=== PATIENT | male | born 1955 | race Caucasian/White ===

== ENCOUNTER → 2020-12-30 | Outpatient (REF) | payer MEDICARE, MEDICAID ==
[~2020-12-30] MED LIST: ASPE16CR TOP; HYDR-3715 PO; IBUP200C25 PO; OMEP-218 PO; VITA-243 PO; VITMTA PO
[2020-12-30 13:17] LABS: BASO % 0.4 % (0.0-1.0); EOS # 0.1 10^3/uL (0.0-0.5); EOS % 0.8 % (0.0-3.0); HEMATOCRIT 45.2 % (42.0-52.0); HEMOGLOBIN 15.7 g/dl (13.5-17.5); LYMPH # 0.5 10^3/uL (1.5-5.0); LYMPH % 6.3 % (24.0-44.0); MEAN CORPUSCULAR HGB CONC 34.7 g/dl (32.0-36.5); MEAN CORPUSCULAR VOLUME 92.2 fl (80.0-96.0); MONO # 0.5 10^3/uL (0.0-0.8); MONO % 6.5 % (2.0-8.0); NEUTROPHILS # 6.7 10^3/uL (1.5-8.5); NEUTROPHILS % 85.9 % (36.0-66.0); PLATELET COUNT, AUTOMATED 301 10^3/uL (150-450); WHITE BLOOD COUNT 7.8 10^3/uL (4.0-10.0)
[2020-12-30 13:27] LABS: INR 0.96
[2020-12-30 13:28] LABS: PARTIAL THROMBOPLASTIN TIME 35.4 SECONDS (24.2-38.5)
[2020-12-30 13:35] LABS: BLOOD UREA NITROGEN 12 MG/DL (7-18); CALCIUM LEVEL 9.8 MG/DL (8.8-10.2); CARBON DIOXIDE LEVEL 28 MEQ/L (21-32); CHLORIDE LEVEL 108 MEQ/L (98-107); CREATININE FOR GFR 0.86 MG/DL (0.70-1.30); GLOMERULAR FILTRATION RATE > 60.0 (>49); GLUCOSE, FASTING 83 MG/DL (70-100); POTASSIUM SERUM 4.8 MEQ/L (3.5-5.1); SODIUM LEVEL 139 MEQ/L (136-145)
== END ==
LOC: M LAB REF 12:41
PROVIDERS: ATTEND Internal Medicine Pulmonary Disease
DX: R91.1 Solitary pulmonary nodule (principal); Z79.01 Long term (current) use of anticoagulants

== ENCOUNTER 2021-01-07 15:44 | Emergency (ER) | payer MEDICARE, MEDICAID, OTHER ==
[~2021-01-07] VITALS: Ht 170.2 cm; Wt 77.6 kg
[2021-01-07 15:45] VITALS: BP 169/86
[2021-01-07] MEDS ORDERED: OMEP-218 PO (16:04)
[2021-01-07] MEDS ORDERED: ISOVUE-370 76% 100ML VIAL As Ordered ONE (16:49)
--- NOTE | 2021-01-07 18:10 | REPVR ---
PROCEDURE INFORMATION: Exam: CT Chest With Contrast; Diagnostic Exam date and time: 01/07/2021 4:10 PM Age: 65 years old Clinical indication: Mass, lump, or swelling in the chest TECHNIQUE: Imaging protocol: Diagnostic computed tomography of the chest with contrast. Radiation optimization: All CT scans at this facility use at least one of these dose optimization techniques: automated exposure control; mA and/or kV adjustment per patient size (includes targeted exams where dose is matched to clinical indication); or iterative reconstruction. Contrast material: ISOVUE 370; Contrast volume: 75 ml; Contrast route: INTRAVENOUS (IV); COMPARISON: No relevant prior studies available. FINDINGS: Tubes, catheters and devices: MediPort catheter tip in superior vena cava. Lungs: There is a mass posteriorly in the left upper lobe along the major fissure measuring 1.5 cm AP x 1.6 cm cc x 2.1 cm in width. There is no focal lung consolidation. There is bronchial wall thickening and dilatation. Pleural spaces: No pleural effusion or pneumothorax. Heart: No cardiomegaly or pericardial effusion. Pulmonary arteries: No obvious pulmonary emboli. Aorta: Unremarkable. No aortic aneurysm. Lymph nodes: No significant mediastinal or hilar lymphadenopathy. Spleen: Splenic granulomas. No significant findings in the upper abdomen. Bones/joints: Unremarkable. No acute fracture. Soft tissues: Unremarkable. IMPRESSION: 1. There is a pleural base mass along the fissure at the base of the left upper lobe measuring 1.5 x 1.6 x 2.1 cm. . For both low risk and high risk patients, consider CT Chest at 3 months, PET/CT, or biopsy. (Reference: Charanjit) REFERENCES: Charanjit Baugh et al. Guidelines for Management of Incidental Pulmonary Nodules Detected on CT Images: From the Fleischner Society 2017. Radiology. 2017;284(1):228-243. Electronically signed by: Lauryn Juarez On 01/07/2021 18:09:59 PM
[2021-02-04] MEDS ORDERED: IBUP200C25 PO (12:53)
[2021-02-04] MEDS ORDERED: ASPE16CR TOP (12:54)
== END 2021-01-07 17:37 | disposition home or self-care (01) ==
LOC: M ED 15:44
DX: R91.8 Other nonspecific abnormal finding of lung field (principal); Z85.048 Personal history of other malignant neoplasm of rectum, rectosigmoid junction, and anus; Z79.899 Other long term (current) drug therapy
CPT/HCPCS: 36415; 71260; 80047; 99284; Q9967

== ENCOUNTER 2021-01-10 08:19 | Day surgery (SDC) | payer OTHER ==
[~2021-01-10] VITALS: Ht 170.2 cm; Wt 78.0 kg
[~2021-01-10 08:19] MED LIST changes: -ASPE16CR TOP; -HYDR-3715 PO; -IBUP200C25 PO; +LIDOCAINE 2% 100MG/5ML SDV (FOR ANES.) As Ordered ONE; +MIDAZOLAM INJ 2MG/2ML VIAL (J2250 PER 1MG) As Ordered ONE; +OMEP-218; -OMEP-218 PO; +ROCURONIUM BROMIDE 50 MG/5 ML VIAL As Ordered ONE; -VITA-243 PO; -VITMTA PO; +fentaNYL 100 MCG/2 ML INJECTION (J3010) As Ordered ONE; +propofoL 200 MG/20 ML VIAL As Ordered ONE
[2021-01-10] MEDS ORDERED: VITMTA PO (08:51)
[2021-01-10] MEDS ORDERED: VITA-243 PO (08:51)
[2021-01-10] MEDS ORDERED: THROMBIN SOLN 5,000 UNITS VIAL As Ordered ONE (08:56)
[2021-01-10] MEDS ORDERED: EPINEPHrine 1MG/10ML SYRINGE 1.5IN As Ordered ONE (08:57)
[2021-01-10] MEDS ORDERED: LIDOCAINE 1% SDV 30ML VIAL As Ordered ONE (08:57)
[2021-01-10] MEDS ORDERED: CETACAINE SPRAY 5GM As Ordered ONE (08:57)
[2021-01-10] MEDS ORDERED: LIDOCAINE 4% INJ 5ML AMP NEB ONE (09:00)
[2021-01-10] MEDS ORDERED: ALBUTEROL SULFATE 2.5 MG/0.5 ML INH NEB SOLN INH ONE (09:00)
[2021-01-10] MEDS ORDERED: fentaNYL 100 MCG/2 ML INJECTION (J3010) As Ordered ONE (09:46)
[2021-01-10] MEDS ORDERED: ONDANSETRON 4MG/2ML VIAL As Ordered ONE (10:03)
[2021-01-10] MEDS ORDERED: dexameTHASONE 4 MG/ML 1ML VIAL (J1100 PER 1MG) As Ordered ONE ×2 (10:03→10:04)
[2021-01-10] MEDS ORDERED: SUGAMMADEX SODIUM 500 MG/5 ML VIAL (BRIDION) As Ordered ONE (10:04)
[2021-01-10] MEDS ORDERED: KETOROLAC 60MG 2ML VIAL As Ordered ONE (10:04)
--- NOTE | 2021-01-10 10:54 | REP ---
INDICATION: LEFT UPPER LOBE ABNORMALITY. COMPARISON: CT 01/07/2021. TECHNIQUE: Five C-arm views chest. FINDINGS: Bronchoscope overlies the left lung. IMPRESSION: 316 seconds of fluoroscopy time utilized. <Electronically signed by Juan Velasquez > 01/10/21 [id number]
--- NOTE | 2021-01-10 10:59 | REP ---
INDICATION: POST OP IN PACU/BRONCHOSCOPY. COMPARISON: None TECHNIQUE: Portable FINDINGS: The technique utilized in obtaining the radiograph has magnified the cardiac silhouette and attenuated the interstitial markings. The cardiomediastinal silhouette is within normal limits. There is a patchy opacity in the left upper lobe. The MediPort device is in place the tip of which is in the superior vena cava. The pleural angles are sharp. The osseous structures are within normal limits. IMPRESSION: Left upper lobe patchy opacity. Other findings as described above. <Electronically signed by Wolfgang Lara > 01/10/21 1203
[2021-01-10] MEDS ORDERED: oxyCODONE 5MG TAB PO PRN (11:00)
[2021-01-10] MEDS ORDERED: HYDROMORPHONE HCL 0.5 MG/ 0.5 ML SYRINGE (J1170 PER 1) IV PRN (11:00)
[2021-01-10] MEDS ORDERED: ONDANSETRON 4MG/2ML VIAL IV PRN (11:00)
[2021-01-10] MEDS ORDERED: fentaNYL 100 MCG/2 ML INJECTION (J3010) IV PRN (11:00)
[2021-01-10] MEDS ORDERED: LR 1,000 ML IV SCH (11:00)
--- NOTE | 2021-01-10 11:06 | ROOR ---
Patient Name: Kody Musa Procedure Date: 01/10/2021 9:02 AM Date of : 1955 Admit Type: Outpatient Age: 65 Note Status: Finalized Attending MD: Robyn Bocanegra MD Procedure: Bronchoscopy Indications: Left upper lobe nodule Providers: Robyn Bocanegra MD (Doctor) Referring MD: Aileen Oswald (Referring MD) Requesting Physician: Medicines: Lidocaine 4% via nebulizer with Albuterol 2.5 mg, Epinephrine 1 mg/10 mL topical 2 mL, General Anesthesia, Cetacaine topical Complications: No immediate complications. Estimated blood loss: Minimal Procedure: Pre-Anesthesia Assessment: - Prior to the procedure, a History and Physical was performed, and patient medications and allergies were reviewed. The patient's tolerance of previous anesthesia was also reviewed. The risks and benefits of the procedure and the sedation options and risks were discussed with the patient. All questions were answered, and informed consent was obtained. Prior Anticoagulants: The patient has taken no previous anticoagulant or antiplatelet agents. ASA Grade Assessment: II - A patient with mild systemic disease. After reviewing the risks and benefits, the patient was deemed in satisfactory condition to undergo the procedure. - Patient identification and proposed procedure were verified prior to the procedure by the physician, the nurse, the anesthesiologist, the electric power line repairer and the testing and regulating technician. The procedure was verified in the procedure room. The Bronchoscope was introduced through the mouth, via the endotracheal tube (the patient was intubated for the procedure) and advanced to the tracheobronchial tree of both lungs. The procedure was accomplished without difficulty. The patient tolerated the procedure well. Findings: The endotracheal tube is in good position. The visualized portion of the trachea is of normal caliber. The kika is sharp. The tracheobronchial tree was examined to at least the first subsegmental level. Bronchial mucosa and anatomy are normal; there are no endobronchial lesions, and no secretions. Robotic Electromagnetic navigation bronchoscopy was performed. The CT scan was used for planning purposes. A virtual bronchoscopic image was generated using the planning software. The target in the apical-posterior segment of the left upper lobe was marked. A nodule 2 cm in size was found and a pathway was created. The robotic navigation phase was then begun to locate the target lesion(s). Positioning centrally (in relation to the lesion) was confirmed using the Olympus radial probe US catheter. Fluoroscopy guided transbronchial brushings of a nodule were obtained in the apical-posterior segment of the left upper lobe with a cytology brush and sent for routine cytology. Transbronchial brushing technique was selected because the sampling site was not accessible using standard endoscopic (bronchoscopic) techniques. Transbronchial needle aspirations of a nodule were performed in the apical-posterior segment of the left upper lobe using a fine (20 gauge) needle and sent for routine cytology. The procedure was guided by fluoroscopy. Transbronchial needle aspiration technique was selected because the sampling site was not visible endoscopically. Transbronchial biopsies of a nodule were performed in the apical-posterior segment of the left upper lobe using forceps and sent for histopathology examination. The procedure was guided by fluoroscopy. Transbronchial biopsy technique was selected because the sampling site was not visible endoscopically. There was some difficulty passing the forceps through the robotic bronchoscope due to the acute angulation needed to be on target with the nodule. Impression: - Left upper lobe nodule - The airway examination was normal. - Electromagnetic navigation bronchoscopy was performed. - Transbronchial brushings were obtained. - A transbronchial needle aspiration was performed. - Transbronchial lung biopsies were performed. Recommendation: - Await test results. Procedure Code(s): --- Professional --- 76016, Bronchoscopy, rigid or flexible, including fluoroscopic guidance, when performed; with transbronchial needle aspiration biopsy(s), trachea, main stem and/or lobar bronchus(i) 91682, Bronchoscopy, rigid or flexible, including fluoroscopic guidance, when performed; with transbronchial lung biopsy(s), single lobe 64132, Bronchoscopy, rigid or flexible, including fluoroscopic guidance, when performed; with brushing or protected brushings 75491, Bronchoscopy, rigid or flexible, including fluoroscopic guidance, when performed; with computer-assisted, image-guided navigation (List separately in addition to code for primary procedure[s]) 07424, Bronchoscopy, rigid or flexible, including fluoroscopic guidance, when performed; with transendoscopic endobronchial ultrasound (EBUS) during bronchoscopic diagnostic or therapeutic intervention(s) for peripheral lesion(s) (List separately in addition to code for primary procedure[s]) CPT copyright 2019 [employer]. All rights reserved. The codes documented in this report are preliminary and upon hims coder review may be revised to meet current compliance requirements. Robyn Bocanegra MD 01/10/2021 11:06:36 AM Number of Addenda: 0 Note Initiated On: 01/10/2021 9:02 AM
[2021-01-10 11:40] VITALS: BP 173/89
== END 2021-01-10 11:40 | disposition home or self-care (01) ==
LOC: M PAT 08:19
PROVIDERS: ATTEND Internal Medicine Pulmonary Disease
DX: R91.1 Solitary pulmonary nodule (principal); Z85.048 Personal history of other malignant neoplasm of rectum, rectosigmoid junction, and anus; K21.9 Gastro-esophageal reflux disease without esophagitis; Z87.891 Personal history of nicotine dependence; Z92.21 Personal history of antineoplastic chemotherapy; Z92.3 Personal history of irradiation; N40.0 Benign prostatic hyperplasia without lower urinary tract symptoms; M19.90 Unspecified osteoarthritis, unspecified site; E78.5 Hyperlipidemia, unspecified; Z79.899 Other long term (current) drug therapy
CPT/HCPCS: 31623; 31627; 31628; 31629; 71045; 76000; 88104; 88173; 88305; J1100; J1885; J2250; J2405; J3010; S2900

== ENCOUNTER → 2021-01-17 | Outpatient (CLI) | payer OTHER ==
[~2021-01-17] MED LIST changes: -LIDOCAINE 2% 100MG/5ML SDV (FOR ANES.) As Ordered ONE; -MIDAZOLAM INJ 2MG/2ML VIAL (J2250 PER 1MG) As Ordered ONE; -ROCURONIUM BROMIDE 50 MG/5 ML VIAL As Ordered ONE; +VITA-243 PO; +VITMTA PO; -fentaNYL 100 MCG/2 ML INJECTION (J3010) As Ordered ONE; -propofoL 200 MG/20 ML VIAL As Ordered ONE
--- NOTE | 2021-01-17 13:50 | PFTRPT ---
Height: 67.00 Inches Weight: 167.00 Lbs BSA: 1.87 Diagnosis: R91.1 DATE: 01/17/2021 ORDERING PHYSICIAN: Devon Zayas MD Pre and post bronchodilator studies have excellent technical quality. Forced vital capacity is normal. FEV1 is in proportion. Obstructive index is therefore normal. Expiratory limit of the flow-volume loop is normal. No bronchodilator response is identified. Total lung capacity is normal. Residual volume is in proportion. Diffusing capacity is normal. Hemoglobin is acceptable at 15.9. Airway resistance and conductance are normal. IMPRESSION: Normal study. MTDD
== END ==
LOC: M CARPUL 13:05
PROVIDERS: ATTEND Thoracic Surgery (Cardiothoracic Vascular Surgery)
DX: R91.1 Solitary pulmonary nodule (principal)

== ENCOUNTER → 2021-02-04 | Outpatient (CLI) | payer OTHER ==
[~2021-02-04] MED LIST changes: +ASPE16CR TOP; +IBUP200C25 PO; -OMEP-218; +OMEP-218 PO
[2021-02-04 12:59] LABS: HEMATOCRIT 44.7 % (42.0-52.0); HEMOGLOBIN 15.5 g/dl (13.5-17.5); MEAN CORPUSCULAR HEMOGLOBIN 32.3 pg (27.0-33.0); MEAN CORPUSCULAR HGB CONC 34.7 g/dl (32.0-36.5); MEAN CORPUSCULAR VOLUME 93.1 fl (80.0-96.0); PLATELET COUNT, AUTOMATED 314 10^3/uL (150-450); WHITE BLOOD COUNT 9.5 10^3/uL (4.0-10.0)
[2021-02-04 13:15] LABS: BLOOD UREA NITROGEN 15 MG/DL (7-18); CALCIUM LEVEL 9.2 MG/DL (8.8-10.2); CARBON DIOXIDE LEVEL 27 MEQ/L (21-32); CHLORIDE LEVEL 108 MEQ/L (98-107); CREATININE FOR GFR 0.92 MG/DL (0.70-1.30); GLOMERULAR FILTRATION RATE > 60.0 (>49); GLUCOSE, FASTING 94 MG/DL (70-100); POTASSIUM SERUM 4.5 MEQ/L (3.5-5.1); SODIUM LEVEL 139 MEQ/L (136-145)
[2021-02-04 13:29] LABS: INR 0.97; PROTHROMBIN TIME 13.1 SECONDS (12.5-14.3)
[2021-02-04 13:30] LABS: PARTIAL THROMBOPLASTIN TIME 35.6 SECONDS (24.2-38.5)
[2021-02-04 13:53] LABS: ABG BASE EXCESS -1.4 (-2.0-2.0); ABG HCO3 22.2 MEQ/L (22.0-26.0); ABG PARTIAL PRESSURE CO2 34.4 mmHg (35.0-45.0); ABG PARTIAL PRESSURE O2 87.6 mmHg (75.0-100.0); ABG STANDARD HCO3 23.3 MEQ/L (22.0-26.0); ABG TOTAL CO2 23.2 MEQ/L (23.0-31.0); ABG pH (ARTERIAL) 7.427 UNITS (7.350-7.450)
[2021-02-04 14:19] LABS: APPEARANCE, URINE CLEAR (CLEAR); BACTERIA, URINE AUTO NEGATIVE (NEGATIVE); BILIRUBIN, URINE AUTO NEGATIVE (NEGATIVE); BLOOD, URINE BLOOD 1+ (NEGATIVE); COLOR, URINE YELLOW (YELLOW); GLUCOSE, URINE (UA) AUTO NEGATIVE (NEGATIVE); KETONE, URINE AUTO 1+ mg/dL (NEGATIVE); LEUKOCYTE ESTERASE, URINE AUTO NEGATIVE (NEGATIVE); MUCUS, URINE SMALL (NEGATIVE); NITRITE, URINE AUTO NEGATIVE (NEGATIVE); PROTEIN, URINE AUTO NEGATIVE (NEGATIVE); RBC, URINE AUTO 2 /HPF (0-3); SQUAMOUS EPITHELIAL CELL UR AU 1 /HPF (0-6); UROBILINOGEN, URINE AUTO 0.2 mg/dL (0.0-2.0); WBC, URINE AUTO 4 /HPF (0-3)
--- NOTE | 2021-02-04 14:40 | REP ---
INDICATION: PREOP ROOM 23 LEFT LOBE ABNORMALITY COMPARISON: 01/10/2021 TECHNIQUE: PA and lateral. FINDINGS: The mediastinum and cardiac silhouette are normal. Godhag-I-Lgem with tip in the IVC. 2.3 cm mass in the left upper lung zone. Remainder of lung banuelos are clear. No effusion. No pneumothorax. The skeletal structures are intact and normal. IMPRESSION: 2.3 cm left upper lobe lung mass. <Electronically signed by Pacheco Bean > 02/04/21 [id number]
--- NOTE | 2021-02-05 01:05 | ECGEPIP ---
[facility] Test Date: 2021-02-04 Pat Name: ARIC ULLOA Department: Room: - Gender: Male [employer] Collector: LOPEZ : 1955 Requested By: Devon Saucedo Order Number: [id number] Reading MD: Jose M Vilchis Measurements Intervals [place] Rate: 57 P: 52 ME: 118 QRS: 29 QRSD: 92 T: 27 QT: 410 QTc: 399 Interpretive Statements Sinus bradycardia No prior tracing in the system Electronically Signed on 02-05-2021 1:05:35 EDT by Jose M Vilchis
== END ==
LOC: M ADMPAT 12:17
PROVIDERS: ATTEND Thoracic Surgery (Cardiothoracic Vascular Surgery)
DX: Z01.818 Encounter for other preprocedural examination (principal)

== ENCOUNTER 2021-02-10 06:45 | Inpatient (IN) | payer OTHER ==
[~2021-02-10] VITALS: Ht 170.2 cm; Wt 74.4 kg
[2021-02-10] VITALS (17 sets, daily range): BP systolic 107–185; BP diastolic 55–108
[~2021-02-10 06:45] MED LIST changes: +LR 1,000 ML IV ONE; +ceFAZolin SOD 2 GM in IV 1 EA IV ONE
[2021-02-10] MEDS ORDERED: CETACAINE SPRAY 5GM As Ordered ONE (07:53)
[2021-02-10] MEDS ORDERED: BUPIVACAINE HCL 0.25% 10ML VIAL As Ordered ONE (07:53)
[2021-02-10] MEDS ORDERED: BUPIVACAINE LIPOSOME/PF 1.3% 20ML VIAL (13.3MG/ML)(EXPAREL)(C9290 PER1MG) As Ordered ONE (07:53)
[2021-02-10] MEDS ORDERED: MUPIROCIN 2% OINT 22 GM TUBE TOP ONE (08:05)
[2021-02-10] MEDS ORDERED: MIDAZOLAM INJ 2MG/2ML VIAL (J2250 PER 1MG) As Ordered ONE ×2 (08:15→08:32)
[2021-02-10] MEDS ORDERED: fentaNYL 100 MCG/2 ML INJECTION (J3010) As Ordered ONE (08:15)
[2021-02-10] MEDS ORDERED: MIDAZOLAM INJ 2MG/2ML VIAL (J2250 PER 1MG) IV ONE (08:15)
[2021-02-10] MEDS ORDERED: fentaNYL 100 MCG/2 ML INJECTION (J3010) IV ONE (08:20)
[2021-02-10] MEDS ORDERED: ROCURONIUM BROMIDE 50 MG/5 ML VIAL As Ordered ONE ×2 (08:31→10:10)
[2021-02-10] MEDS ORDERED: LIDOCAINE 2% 100MG/5ML SDV (FOR ANES.) As Ordered ONE (08:31)
[2021-02-10] MEDS ORDERED: propofoL 200 MG/20 ML VIAL As Ordered ONE (08:31)
[2021-02-10] MEDS ORDERED: fentaNYL 250 MCG/5 ML INJECTION (J3010) As Ordered ONE (08:32)
[2021-02-10] MEDS ORDERED: BUPIVACAINE HCL 0.25% 30ML VIAL As Ordered ONE (08:38)
[2021-02-10] MEDS ORDERED: BACITRACIN OINTMENT 30GM TUBE As Ordered ONE (08:39)
[2021-02-10] MEDS ORDERED: LIDOCAINE 2% JELLY 5ML TUBE As Ordered ONE (08:57)
[2021-02-10] MEDS ORDERED: MUPIROCIN 2% OINT 22 GM TUBE As Ordered ONE (09:17)
[2021-02-10] MEDS ORDERED: ePHEDrine SULFATE 25 MG/5 ML(5MG/ML) SYRINGE As Ordered ONE (09:21)
[2021-02-10] MEDS ORDERED: dexameTHASONE 4 MG/ML 1ML VIAL (J1100 PER 1MG) As Ordered ONE (10:05)
[2021-02-10] MEDS ORDERED: hydrALAZINE 20MG/ML 1ML VIAL (J0360 PER 20MG) As Ordered ONE (10:20)
[2021-02-10] MEDS ORDERED: HYDROmorphone HCL 2 MG/ML 1ML VIAL (J1170) As Ordered ONE (10:48)
[2021-02-10] MEDS ORDERED: SUGAMMADEX SODIUM 500 MG/5 ML VIAL (BRIDION) As Ordered ONE (11:17)
[2021-02-10] MEDS ORDERED: ONDANSETRON 4MG/2ML VIAL As Ordered ONE (11:17)
[2021-02-10] MEDS ORDERED: ACETAMINOPHEN 1000MG 100ML IV BTL (OFIRMEV) (J0131 PER 10MG) As Ordered ONE (12:23)
[2021-02-10] MEDS ORDERED: KETOROLAC 60MG 2ML VIAL As Ordered ONE (12:53)
[2021-02-10] MEDS ORDERED: LEVALBUTEROL 1.25 MG/0.5 ML CONCENTRATE NEB NEB PRN (12:55)
[2021-02-10] MEDS ORDERED: ONDANSETRON 4MG/2ML VIAL IV PRN ×3 (12:55→13:05)
[2021-02-10] MEDS ORDERED: ACETAMINOPHEN TAB 650MG DOSE (2X325MG) PO PRN (12:55)
[2021-02-10] MEDS ORDERED: BISACODYL 10 MG SUPP PR PRN (12:55)
[2021-02-10] MEDS ORDERED: PERCOCET 5MG/325MG TAB PO PRN ×2 (12:55)
[2021-02-10] MEDS ORDERED: diphenhydrAMINE 50MG/ML VIAL (J1200) IV PRN (13:00)
[2021-02-10] MEDS ORDERED: WALLBOXKEY XX PRN (13:00)
[2021-02-10] MEDS ORDERED: METOCLOPRAMIDE INJ 10MG/2ML VIAL (J2765 PER 1) IV PRN (13:00)
[2021-02-10] MEDS ORDERED: EPIDURAL/PCA KEYS XX PRN (13:00)
[2021-02-10] MEDS ORDERED: NALOXONE INJ 0.4MG/1ML VIAL (J2310 PER 1MG) IV PRN (13:00)
[2021-02-10] MEDS ORDERED: LR 1,000 ML IV SCH (13:05)
[2021-02-10] MEDS: FENTANYL/BUPIVACAINE/NACL BAG 250 ML EPIDURAL SCH (13:16)
[2021-02-10 13:26] LABS: ABG BASE EXCESS -3.3 (-2.0-2.0); ABG HCO3 22.2 MEQ/L (22.0-26.0); ABG O2 SATURATION 95.6 % (95.0-99.0); ABG PARTIAL PRESSURE CO2 41.3 mmHg (35.0-45.0); ABG STANDARD HCO3 21.7 MEQ/L (22.0-26.0); ABG TOTAL CO2 23.5 MEQ/L (23.0-31.0); ABG pH (ARTERIAL) 7.348 UNITS (7.350-7.450)
[2021-02-10] MEDS: fentaNYL 100 MCG/2 ML INJECTION (J3010) IV PRN ×4 (13:32→13:49)
[2021-02-10] MEDS: oxyCODONE 5MG TAB PO PRN ×2 (13:33→14:09)
[2021-02-10] MEDS: KCL 20MEQ IN D5/NS 1000ML 1,000 ML IV SCH (13:34)
[2021-02-10 13:43] LABS: BASO % 0.2 % (0.0-1.0); HEMATOCRIT 44.7 % (42.0-52.0); HEMOGLOBIN 15.5 g/dl (13.5-17.5); LYMPH # 0.7 10^3/uL (1.5-5.0); LYMPH % 3.9 % (24.0-44.0); MEAN CORPUSCULAR HEMOGLOBIN 31.8 pg (27.0-33.0); MEAN CORPUSCULAR HGB CONC 34.7 g/dl (32.0-36.5); MEAN CORPUSCULAR VOLUME 91.8 fl (80.0-96.0); MONO # 0.2 10^3/uL (0.0-0.8); MONO % 1.3 % (2.0-8.0); NEUTROPHILS # 15.9 10^3/uL (1.5-8.5); NEUTROPHILS % 94.1 % (36.0-66.0); PLATELET COUNT, AUTOMATED 299 10^3/uL (150-450); RED BLOOD COUNT 4.87 10^6/uL (4.30-6.10); WHITE BLOOD COUNT 16.9 10^3/uL (4.0-10.0)
[2021-02-10 14:02] LABS: BLOOD UREA NITROGEN 12 MG/DL (7-18); CALCIUM LEVEL 8.9 MG/DL (8.8-10.2); CARBON DIOXIDE LEVEL 24 MEQ/L (21-32); CHLORIDE LEVEL 108 MEQ/L (98-107); CREATININE FOR GFR 0.92 MG/DL (0.70-1.30); GLOMERULAR FILTRATION RATE > 60.0 (>49); GLUCOSE, FASTING 131 MG/DL (70-100); POTASSIUM SERUM 3.8 MEQ/L (3.5-5.1); SODIUM LEVEL 140 MEQ/L (136-145)
--- NOTE | 2021-02-10 14:49 | RO ---
OPERATIVE NOTE DATE OF OPERATION: 02/10/2021 PRE-PROCEDURE DIAGNOSIS: Left pleural lung lesion. POST-PROCEDURE DIAGNOSIS: Metastatic rectal carcinoma left upper lobe. PROCEDURE: 1. Thoracoscopy followed by an open thoracotomy and wedge resection. 2. Lysis of adhesions. 3. Five-level rib block. SURGEON: Devon Zayas MD FINDINGS: Bronchoscopy revealed a normal branching tracheobronchial tree. The thoracoscopy revealed mostly adhesions which prompted an open procedure. The tumor was densely adhered to the left lower lobe and it took a considerable amount of time to dissect it free so that a staple could surround it. Eventually, a portion of the left lower lobe was taken along with the specimen and then the actual wedge resection of the specimen was undertaken. 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 DESCRIPTION OF PROCEDURE: Under satisfactory general anesthesia and single-lumen tube endotracheal intubation, the bronchoscope was passed into the tracheobronchial tree. Each segment and subsegment was thoroughly inspected and there were no endobronchial lesions. The patient was then turned into the right lateral decubitus position and a thoracoscopy incision was made in the mid clavicular line. The scope was passed and multiple adhesions were found. It was very clear that I was going to have to do a thoracotomy in order to remove this mass. Posterior and lateral thoracotomy incision was then undertaken with division of the latissimus dorsi and a slip of the serratus anterior. The chest was entered in the intercostal space and therein followed a lengthy, tedious, and long dissection in order to free the fissure up from the multiple adhesions. The tumor was sitting right in the fissure and was densely adhered to the left lower lobe. I could eventually slowly and carefully lyse the adhesions, such that I could get underneath the tumor from [id number], so as to get a stapler underneath the tumor. In order to that, I first took a wedge of the left lower lobe with the tumor attached to it. I then freed up the tumor to be mobilized and an echelon stapler was then placed beneath the tumor, and wedge resection was accomplished in two passes. This was sent to the lab with the above results. After achieving adequate hemostasis, two chest tubes were placed. A 5-level rib block was placed consisting of Marcaine and Exparel. The staple lock was covered with Tisseel glue and the ribs were reapproximated with the use of #1 Prolene [id number]-gcvju sutures serving as pericostal stitches. The lungs were reinflated. These were then tied and the extra-thoracic muscles were closed with running 0-Vicryl suture, the subcutaneous tissue by use of a 3-0 Vicryl sutures, and the skin by use of 3-0 Monocryl subcuticular suture. The patient tolerated the procedure well and left the operating room in satisfactory condition and went to the recovery room.
[2021-02-10] MEDS: LEVALBUTEROL 1.25 MG/0.5 ML CONCENTRATE NEB NEB SCH ×2 (14:58→20:34)
[2021-02-10] MEDS: KETOROLAC 30 MG/ML 1ML VIAL IV SCH (18:01)
[2021-02-10] MEDS: HEPARIN SOD (PORCINE) 5000UNITS/ML 1ML VIAL/SYRINGE SC SCH (20:22)
[2021-02-10] MEDS: DOCUSATE SODIUM 100MG CAPSULE PO SCH (20:22)
[2021-02-11] VITALS (12 sets, daily range): BP systolic 102–143; BP diastolic 53–75
[2021-02-11] MEDS: KETOROLAC 30 MG/ML 1ML VIAL IV SCH ×4 (00:26→18:01)
[2021-02-11] MEDS: KCL 20MEQ IN D5/NS 1000ML 1,000 ML IV SCH (01:48)
[2021-02-11] MEDS: LEVALBUTEROL 1.25 MG/0.5 ML CONCENTRATE NEB NEB SCH ×4 (01:51→19:40)
--- NOTE | 2021-02-11 03:53 | REP ---
INDICATION: s/p LULwedge, thoracotomy COMPARISON: 02/04/2021 TECHNIQUE: Portable AP view of the chest FINDINGS: Two left-sided chest tubes are identified along with small amount of postsurgical changes including small amounts of subcutaneous emphysema. No focal consolidation, obvious effusion, significant atelectasis or pneumothorax. Mediastinum and cardiac silhouette are normal. Nxakzv-Z-Qiah identified with tip in the SVC. Skeletal structures are intact. IMPRESSION: Postsurgical changes involving the left hemithorax. <Electronically signed by Pacheco Bean > 02/11/21 [id number]
[2021-02-11 06:16] LABS: ABG BASE EXCESS -2.1 (-2.0-2.0); ABG HCO3 21.5 MEQ/L (22.0-26.0); ABG PARTIAL PRESSURE CO2 33.4 mmHg (35.0-45.0); ABG PARTIAL PRESSURE O2 80.3 mmHg (75.0-100.0); ABG STANDARD HCO3 22.7 MEQ/L (22.0-26.0); ABG TOTAL CO2 22.5 MEQ/L (23.0-31.0); ABG pH (ARTERIAL) 7.426 UNITS (7.350-7.450)
[2021-02-11 06:30] LABS: BASO % 0.1 % (0.0-1.0); LYMPH # 0.4 10^3/uL (1.5-5.0); LYMPH % 3.6 % (24.0-44.0); MEAN CORPUSCULAR HEMOGLOBIN 32.2 pg (27.0-33.0); MEAN CORPUSCULAR HGB CONC 34.2 g/dl (32.0-36.5); MEAN CORPUSCULAR VOLUME 94.1 fl (80.0-96.0); MONO # 0.9 10^3/uL (0.0-0.8); NEUTROPHILS # 9.1 10^3/uL (1.5-8.5); PLATELET COUNT, AUTOMATED 260 10^3/uL (150-450); RED BLOOD COUNT 4.04 10^6/uL (4.30-6.10); WHITE BLOOD COUNT 10.4 10^3/uL (4.0-10.0)
[2021-02-11 06:54] LABS: BLOOD UREA NITROGEN 11 MG/DL (7-18); CALCIUM LEVEL 8.2 MG/DL (8.8-10.2); CARBON DIOXIDE LEVEL 23 MEQ/L (21-32); CHLORIDE LEVEL 111 MEQ/L (98-107); CREATININE FOR GFR 0.78 MG/DL (0.70-1.30); GLOMERULAR FILTRATION RATE > 60.0 (>49); GLUCOSE, FASTING 120 MG/DL (70-100); POTASSIUM SERUM 4.2 MEQ/L (3.5-5.1); SODIUM LEVEL 141 MEQ/L (136-145)
--- NOTE | 2021-02-11 08:51 | REP ---
INDICATION: s/p LULwedge, thoracotomy COMPARISON: 02/10/2021 TECHNIQUE: PA and lateral. FINDINGS: Mediastinum and cardiac silhouette are relatively stable. Right hemithorax appears relatively stable/clear. Left hemithorax demonstrates postsurgical changes with 2 chest tubes extending to the left apex. Qptmfo-A-Eopa identified with tip in the SVC. Trace left basilar atelectasis cannot be excluded. No obvious effusion or pneumothorax. IMPRESSION: Cannot exclude trace left basilar atelectasis. <Electronically signed by Pacheco Bean > 02/11/21 0825
[2021-02-11] MEDS: MOM 30ML SUSPENSION UDC PO SCH (09:25)
[2021-02-11] MEDS: DOCUSATE SODIUM 100MG CAPSULE PO SCH ×2 (09:26→20:50)
[2021-02-11] MEDS: HEPARIN SOD (PORCINE) 5000UNITS/ML 1ML VIAL/SYRINGE SC SCH ×2 (09:26→20:50)
[2021-02-11] MEDS: PANTOPRAZOLE 40MG TAB (PROTONIX) PO SCH (09:26)
--- NOTE | 2021-02-11 12:26 | IPN ---
PROGRESS NOTE DATE: 02/11/2021 This is now the first postoperative day for Mr. Musa status post a wedge resection for what has turned out to be metastatic rectal carcinoma. I informed the patient of the findings of yesterday to reinforce what I told him in the recovery room. His pain is being well controlled with the epidural. His vital signs show a maximum temperature of 98.3 with a heart rate that ranges between 60-101 in a sinus rhythm, respiratory rate of 16-18 without the use of accessory muscles who is 93%-96% saturated now on room air, and blood pressure is ranging between 143/57 to 102/59. His intake and output for the past 24 hours has been recorded as 2173 in and 716 out, for a positivity of 1400 mL. He has put 81 mL out of the chest tube, and there is no air leak. Weight today is 74.9 kg compared to 75.48 kg yesterday. PHYSICAL EXAMINATION: He has some coarse rhonchi, which clears with coughing, and underneath normal vesicular sounds. Cardiac exam is without murmurs, clicks, gallops, or rubs. I cannot feel his point of maximal impulse (PMI). S1 and S2 are normal. Abdomen is soft and nontender. Bowel sounds are positive. He is slightly distended. He is having flatus. There is no hepatomegaly. No costovertebral angle (CVA) tenderness. Extremities show no pretibial edema, no calf tenderness, no differential swelling of the upper extremities. Skin is warm, dry, and perfused without cyanosis or mottling, including that of the nailbeds and knees. Neck is supple. There is no jugular venous distention. No subcutaneous emphysema. Trachea is midline. Mouth shows the mucous membranes to be pink and moist. Lips and commissures without lesions. No thrush. Eyes show his pupils to be equal and reactive. Extraocular motion intact. Sclerae anicteric. Neurologic shows II-XII intact. Normal gross motor, gross sensation intact. Gait is not tested. Psychiatric shows him to be awake, alert, and oriented times three with appropriate mood and affect and conversational. His white count today is 10.4 with a hemoglobin and hematocrit of 13.0 and 38.0, respectively. Platelet count is 260, and differential shows 87% neutrophils, 30% lymphocytes, and 9% monocytes. There are no immature forms or toxic granulations. His electrolytes are normal with a BUN and creatinine of 11 and 0.78, glucose of 120, and a calcium 8.2. His chest x-ray today shows his lung fully expanded to the chest wall. Costophrenic angles are sharp. There is no subcutaneous emphysema, and the trachea is in the midline. There are no infiltrates either on the PA or lateral views. Chest tubes are in good place. IMPRESSION: 1. Metastatic rectal carcinoma to the lung, status post wedge resection. 2. Gastroesophageal reflux disease. PLAN AND DISCUSSION: I will take his chest tubes off suction today. I will transfer him to the progressive care unit (PCU). There is an outside possibility that I could remove the chest tubes tomorrow. I will not diurese him today, however. I have already called his oncologist, Dr. Aileen Oswald, in [place] and have informed her of the findings. She is to see him in about 2 weeks for followup medical therapy.
[2021-02-11] MEDS: FENTANYL/BUPIVACAINE/NACL BAG 250 ML EPIDURAL SCH (13:43)
[2021-02-12] MEDS: KETOROLAC 30 MG/ML 1ML VIAL IV SCH ×5 (01:00→18:29)
[2021-02-12] MEDS: LEVALBUTEROL 1.25 MG/0.5 ML CONCENTRATE NEB NEB SCH ×4 (02:16→19:58)
[2021-02-12 05:34] LABS: BASO % 0.3 % (0.0-1.0); EOS # 0.1 10^3/uL (0.0-0.5); HEMATOCRIT 38.7 % (42.0-52.0); HEMOGLOBIN 13.1 g/dl (13.5-17.5); LYMPH # 0.6 10^3/uL (1.5-5.0); LYMPH % 6.6 % (24.0-44.0); MEAN CORPUSCULAR HEMOGLOBIN 32.5 pg (27.0-33.0); MEAN CORPUSCULAR HGB CONC 33.9 g/dl (32.0-36.5); MONO # 0.8 10^3/uL (0.0-0.8); MONO % 8.3 % (2.0-8.0); NEUTROPHILS # 7.6 10^3/uL (1.5-8.5); NEUTROPHILS % 83.5 % (36.0-66.0); PLATELET COUNT, AUTOMATED 249 10^3/uL (150-450); RED BLOOD COUNT 4.03 10^6/uL (4.30-6.10); WHITE BLOOD COUNT 9.1 10^3/uL (4.0-10.0)
[2021-02-12 06:01] LABS: BLOOD UREA NITROGEN 13 MG/DL (7-18); CALCIUM LEVEL 8.2 MG/DL (8.8-10.2); CARBON DIOXIDE LEVEL 25 MEQ/L (21-32); CHLORIDE LEVEL 112 MEQ/L (98-107); CREATININE FOR GFR 0.86 MG/DL (0.70-1.30); GLOMERULAR FILTRATION RATE > 60.0 (>49); GLUCOSE, FASTING 94 MG/DL (70-100); POTASSIUM SERUM 4.2 MEQ/L (3.5-5.1); SODIUM LEVEL 143 MEQ/L (136-145)
[2021-02-12 07:35] VITALS: BP 138/65
[2021-02-12] MEDS: MOM 30ML SUSPENSION UDC PO SCH (07:42)
[2021-02-12] MEDS: PANTOPRAZOLE 40MG TAB (PROTONIX) PO SCH (07:43)
[2021-02-12] MEDS: HEPARIN SOD (PORCINE) 5000UNITS/ML 1ML VIAL/SYRINGE SC SCH ×2 (07:43→20:46)
[2021-02-12] MEDS: DOCUSATE SODIUM 100MG CAPSULE PO SCH ×2 (07:43→20:45)
--- NOTE | 2021-02-12 09:08 | REP ---
INDICATION: s/p LULwedge, thoracotomy. COMPARISON: Comparison chest x-ray February 11, 2021 TECHNIQUE: ... FINDINGS: Two left-sided chest tubes are noted in place. There is no definite pneumothorax visible. Minimal pleural thickening is seen laterally on the left and there is platelike atelectasis behind the heart in the left lower lobe. Platelike atelectasis is suspected in the right base as well. There is an epidural catheter visible in the upper thoracic spine and EKG electrodes are seen. A left-sided central venous line terminates in the expected location of superior vena cava as before. No new infiltrate is seen. No free pleural effusion seen. IMPRESSION: Two left-sided chest tubes remain in place. No evidence of pneumothorax or hydrothorax. Mild bibasilar platelike atelectasis.. <Electronically signed by August Timmons > 02/12/21 [id number]
[2021-02-12] MEDS ORDERED: FUROSEMIDE 40MG/4ML VIAL (J1940) IV ONE (11:00)
[2021-02-12 12:00] VITALS: BP 136/72
--- NOTE | 2021-02-12 12:13 | IPN ---
PROGRESS NOTE DATE: 02/12/2021 This is now the second postoperative day for Mr. Musa. His pain is being well controlled with the epidural. There is no air leak, and his lung is fully expanded to the chest wall. His vital signs show a maximum temperature of 98.2 with a heart rate that ranges between 101-68 in a sinus rhythm with a respiratory rate of 16-18 without the use of accessory muscles, who is 94%-95% saturated on room air and whose blood pressure is ranging between 138/65 to 111/67. His intake and output for the past 24 hours has been recorded as 1804 in and 1929 out, for a negativity of 125 mL. He has put 150 mL out the chest tube, and there is no air leak. He weighs 75.2 kg today compared to 74.9 kg yesterday. PHYSICAL EXAMINATION: His lung show equal breath sounds on either side with normal vesicular sounds. There are no wheezes, rhonchi, or rales. Percussion note is full to the diaphragm. Cardiac exam is without murmurs, clicks, gallops, or rubs. I cannot feel his point of maximal impulse (PMI). S1 and S2 are normal. Abdomen is soft and nontender. Bowel sounds are positive. There is no hepatomegaly. No costovertebral angle (CVA) tenderness. He has not yet had a bowel movement but is passing flatus. Extremities show no pretibial edema, no calf tenderness, no differential swelling of the upper extremities. Skin is warm, dry, and perfused without cyanosis or mottling, including that of the nailbeds and knees. Neck is supple. There is no jugular venous distention. No subcutaneous emphysema. Trachea is midline. Mouth shows the mucous membranes to be pink and moist. Lips and commissures without lesions. No thrush. Eyes show his pupils to be equal and reactive. Extraocular motion intact. Sclerae anicteric. Neurologic shows II-XII intact. Normal gross motor, gross sensation intact. Gait is not tested. Psychiatric shows him to be awake, alert, and oriented times three with appropriate mood and affect and conversational. His white count today is 9.1 with a hemoglobin and hematocrit of 13.1 and 38.7, unchanged from yesterday, with a platelet count of 249 and stable. Differential shows 83% neutrophils, 6% lymphocytes, and 8% monocytes. There are no immature forms or toxic granulations. His electrolytes are essentially normal with a BUN and creatinine of 13 and 0.86, a glucose of 94, and a calcium of 8.2. His chest x-ray shows his lung fully expanded to the chest wall. There is no subcutaneous emphysema. Costophrenic angles are sharp. Chest tubes are in good place. IMPRESSION: 1. Metastatic rectal carcinoma to the lung status post wedge resection. 2. Gastroesophageal reflux disease. PLAN AND DISCUSSION: I will discontinue his chest tubes today. We will wean the epidural and discontinue the Jaquez. During the wean we will give him oral pain medications. I will also diurese him today.
[2021-02-12] MEDS: FENTANYL/BUPIVACAINE/NACL BAG 250 ML EPIDURAL SCH (12:41)
[2021-02-12] MEDS: NORCO, ANEXSIA 5/325MG TABLET (HYDROcodone/ACETAMINOPHEN) PO PRN (15:35)
[2021-02-12 16:00] VITALS: BP 161/77
[2021-02-12 20:00] VITALS: BP 150/70
[2021-02-13] VITALS: BP 154/73
[2021-02-13] MEDS: KETOROLAC 30 MG/ML 1ML VIAL IV SCH ×2 (00:27→06:00)
[2021-02-13] MEDS: LEVALBUTEROL 1.25 MG/0.5 ML CONCENTRATE NEB NEB SCH ×2 (01:05→07:02)
[2021-02-13 03:58] LABS: BASO % 0.3 % (0.0-1.0); EOS # 0.1 10^3/uL (0.0-0.5); EOS % 0.9 % (0.0-3.0); HEMATOCRIT 42.1 % (42.0-52.0); HEMOGLOBIN 14.6 g/dl (13.5-17.5); LYMPH # 0.6 10^3/uL (1.5-5.0); LYMPH % 5.5 % (24.0-44.0); MEAN CORPUSCULAR HEMOGLOBIN 32.6 pg (27.0-33.0); MEAN CORPUSCULAR HGB CONC 34.7 g/dl (32.0-36.5); MONO # 0.8 10^3/uL (0.0-0.8); MONO % 7.4 % (2.0-8.0); NEUTROPHILS # 8.6 10^3/uL (1.5-8.5); NEUTROPHILS % 85.4 % (36.0-66.0); PLATELET COUNT, AUTOMATED 276 10^3/uL (150-450); RED BLOOD COUNT 4.48 10^6/uL (4.30-6.10); WHITE BLOOD COUNT 10.1 10^3/uL (4.0-10.0)
[2021-02-13 04:00] VITALS: BP 158/76
[2021-02-13] MEDS: NORCO, ANEXSIA 5/325MG TABLET (HYDROcodone/ACETAMINOPHEN) PO PRN (04:01)
[2021-02-13 04:24] LABS: BLOOD UREA NITROGEN 15 MG/DL (7-18); CARBON DIOXIDE LEVEL 26 MEQ/L (21-32); CHLORIDE LEVEL 107 MEQ/L (98-107); CREATININE FOR GFR 0.92 MG/DL (0.70-1.30); GLOMERULAR FILTRATION RATE > 60.0 (>49); GLUCOSE, FASTING 109 MG/DL (70-100); POTASSIUM SERUM 3.9 MEQ/L (3.5-5.1); SODIUM LEVEL 139 MEQ/L (136-145)
[2021-02-13 08:00] VITALS: BP 145/83
[2021-02-13] MEDS: HEPARIN SOD (PORCINE) 5000UNITS/ML 1ML VIAL/SYRINGE SC SCH (08:18)
[2021-02-13] MEDS: PANTOPRAZOLE 40MG TAB (PROTONIX) PO SCH (08:18)
[2021-02-13] MEDS: MOM 30ML SUSPENSION UDC PO SCH (08:19)
[2021-02-13] MEDS: DOCUSATE SODIUM 100MG CAPSULE PO SCH (08:19)
--- NOTE | 2021-02-13 08:57 | REP ---
INDICATION: s/p LULwedge, thoracotomy. COMPARISON: Comparison chest x-ray February 12, 2021. TECHNIQUE: Two views.. FINDINGS: In the interval since yesterday's chest radiograph, the 2 left-sided chest tubes have both been removed. A Znbjfz-V-Ktwa catheter remains in place via the left internal jugular vein with its tip in the expected location of the superior vena cava. Monitoring electrodes are seen. There is no evidence of pneumothorax or hydrothorax on either side. There are some linear densities in the left upper lobe consistent with postoperative change. Some pleural thickening is seen along the left lateral chest wall as well. No infiltrate is seen. IMPRESSION: Postthoracotomy changes status post removal of left chest tubes. No evidence of pneumothorax or hydrothorax or new infiltrate.. <Electronically signed by August Timmons > 02/13/21 0859
[2021-02-13] MEDS ORDERED: HYDR-3715 PO (10:25)
--- NOTE | 2021-02-14 14:17 | DSES ---
DISCHARGE SUMMARY DATE OF ADMISSION: 02/10/2021 DATE OF DISCHARGE: 02/13/2021 DISCHARGE DIAGNOSES: 1. Metastatic rectal cancer to the left upper lobe of the lung. 2. Postop day #3 status post wedge resection of left upper lobe. 3. Gastroesophageal reflux disease. 4. Rectal cancer status post chemotherapy. HOSPITAL COURSE: Patient is a 65-year-old white male who has a history of rectal cancer treated approximately two years ago nonoperatively at [facility]. His most recent colonoscopy showed there to be no recurrence. However, during routine surveillance, a chest lesion was found on a chest x-ray which was followed up with a chest CT which showed a lesion in the left upper lobe with a fissure. He had no pulmonary symptoms. There were no fever, chills, or sweats. He had a 20 pound weight loss during his chemotherapy, but he has gained all that back. He has a remote smoking history of a few cigarettes every now and then up until about 30 years ago. There was no travel outside [facility] or bordering [place]. He used to do [employer] work, and there is no alcohol abuse. There is one cat at home. His preoperative pulmonary function tests showed FEV1 of 2.86 with a DLCO which was 134% of predicted at 20.8. A robotic navigation was not successful, and, therefore, he was referred for a wedge resection. The appearance of the lesion was that of a rounded mass looking very suspicious for metastasis. Thus, he was prepared for a left upper lobectomy should it had proven to be primary lung cancer. He was taken to the operating room where he underwent a wedge resection of the mass. This required an extensive tedious dissection of the mass from the lower lobe. A section of lower lobe was taken with the wedge. The fissure was maintained although it was involved with the mass. 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 Therefore, we did not proceed with lobectomy being content with a metastasectomy. Patient had a benign postoperative course. His pain was so well controlled with the epidural the chest tubes were able to be removed on the second postoperative day having no air leak and minimal output. He was gently diuresed on the second postoperative day. His discharge x-ray shows the lung fully expanded to the chest wall. There is no subcutaneous emphysema. His discharge white count is 10.1 with hemoglobin and hematocrit of 14.6 and 42.1 respectively. Platelet count is 276. His electrolytes were normal with a BUN and creatinine of 15 and 0.9, a glucose of 109, and a calcium of 9.0. His chest x-ray shows his lung fully expanded to the chest wall, the costophrenic angles were sharp, and there was no subcutaneous emphysema. DISCHARGE MEDICATIONS: He is being discharged today on his home medications which include: 1. Vitamin C 500 mg q.day. 2. Ibuprofen 400 mg p.r.n. pain. 3. Multivitamins one q.day. 4. Omeprazole 20 mg q.day. 5. Vicodin 5/325 q.4-6 hours p.r.n. pain. FOLLOW UP: He will return to see me in one week with a chest x-ray. DISCHARGE INSTRUCTIONS: He has been advised that he can take showers and leave the wounds open to old fashion air. I have advised him not to do any driving until his next visit with me in one week.
== END 2021-02-13 12:26 | disposition home or self-care (01) | DRG 121 ==
LOC: M OR 06:45 → M ICU 14:32 → M PCU 02-11 18:40
PROVIDERS: ADMIT Thoracic Surgery (Cardiothoracic Vascular Surgery); ATTEND Thoracic Surgery (Cardiothoracic Vascular Surgery)
PROC: 0BBJ0ZZ Excision of Left Lower Lung Lobe, Open Approach (ICD-10-PCS; principal; 2021-02-10 08:30)
PROC: 0BJ08ZZ Inspection of Tracheobronchial Tree, Via Natural or Artificial Opening Endoscopic (ICD-10-PCS; principal; 2021-02-10 08:30)
DX: C78.02 Secondary malignant neoplasm of left lung (principal); K21.9 Gastro-esophageal reflux disease without esophagitis; Z92.21 Personal history of antineoplastic chemotherapy; Z85.048 Personal history of other malignant neoplasm of rectum, rectosigmoid junction, and anus; Z87.891 Personal history of nicotine dependence

== ENCOUNTER → 2021-02-28 | Outpatient (CLI) | payer MEDICARE, MEDICAID ==
[~2021-02-28] MED LIST changes: +HYDR-3715 PO; -LR 1,000 ML IV ONE; -ceFAZolin SOD 2 GM in IV 1 EA IV ONE
--- NOTE | 2021-02-28 11:09 | REP ---
INDICATION: SOLITARY PULMONARY NODULE. COMPARISON: Comparison chest x-ray February 13, 2021. TECHNIQUE: Two views.. FINDINGS: There is pleuroparenchymal reaction along the left lateral chest wall with tenting of and slight blunting of the lateral surface of the diaphragm and left pleural angle on the frontal radiograph. Patient is status post prior left thoracotomy and partial pneumonectomy. There are post thoracotomy sutures in the left upper perihilar region. Granulomatous calcifications are noted in left hilar and an precarinal lymph node locations. The heart is not enlarged. The right lung is clear. There is a Gpobql-O-[id number] catheter in place via the left internal jugular vein with its tip in the expected location of the superior vena cava. IMPRESSION: Post thoracotomy partial pneumonectomy changes on the left. No acute abnormality.. <Electronically signed by August Timmons > 02/28/21 1101
== END ==
LOC: M PLAIMG 09:54
PROVIDERS: ATTEND Thoracic Surgery (Cardiothoracic Vascular Surgery)
DX: R91.1 Solitary pulmonary nodule (principal)